=== PATIENT | male | born 1975 | race American Indian/Alaskan Native ===

== ENCOUNTER 2020-12-01 12:44 | Emergency (ER) | payer BC, OTHER ==
[2020-12-01 13:04] VITALS: BP 190/103
[2020-12-01] MEDS ORDERED: cloNIDine 0.2 MG TAB PO ONE (13:08)
--- NOTE | 2020-12-01 13:09 | Emergency Department Report ---
HPI - General Chief Complaint: Upper Respiratory Infection Time Seen by Provider: 12/01/20 12:48 - HPI HPI: MSE 1 Patient is a 45-year-old male present with a chief complaint of cough. The patient states for the past 4 to 5 days has had a cough productive of brown sputum. Patient states that night he notices blood in his sputum. Patient denies chest pain or shortness of breath. Patient denies history of fever. The patient states he has not received any vaccinations for Covid. Patient denies any known sick contacts ED Past Medical Hx - Past Medical History Hx Hypertension: Yes Hx Diabetes: Yes Additional medical history: Urethral stricture - Surgical History Additional Surgical History: Penile surgery - Family History Family history: no significant - Social History Smoking Status: Never Smoker Substance Use Type: None (Denies illicit drug use), Alcohol (Occasional) - Medications Home Medications: Home Medications Medication Instructions Recorded Confirmed Last Taken Type Furosemide [Lasix TAB] 40 mg PO QDAY 10/09/14 08/31/15 09/25/14 History Losartan [Cozaar] 100 mg PO QDAY 10/09/14 08/31/15 09/25/14 History amLODIPine 5 mg PO DAILY 10/09/14 08/31/15 09/25/14 History metFORMIN XR [Glucophage XR] 500 mg PO TID 10/09/14 08/31/15 09/25/14 History Benzonatate [Tessalon Perles] 100 mg PO Q8HR #30 capsule 12/01/20 Unknown Rx levoFLOXacin [Levaquin] 750 mg PO QDAY #10 tablet 12/01/20 Unknown Rx ED Review of Systems ROS: Stated complaint: BAD COUGH/BLOOD IN SALIVA Other details as noted in HPI Constitutional: denies: fever Eyes: denies: eye pain ENT: denies: throat pain Respiratory: cough. denies: shortness of breath Cardiovascular: denies: chest pain Endocrine: no symptoms reported Gastrointestinal: denies: abdominal pain Genitourinary: denies: dysuria Musculoskeletal: denies: back pain Neurological: denies: headache Physical Exam - Physical Exam Vital Signs: Vital Signs 12/01/20 12:50 Temperature 98.3 F Pulse Rate 82 Respiratory 20 Rate Blood Pressure 190/103 O2 Sat by Pulse 95 Oximetry Physical Exam: GENERAL: The patient is well-developed well-nourished obese male lying on stretcher not appearing to be in acute distress. [] HEENT: Normocephalic. Atraumatic. Extraocular motions are intact. Patient has moist mucous membranes. NECK: Supple. Trachea midline CHEST/LUNGS: Clear to auscultation. There is no respiratory distress noted. HEART/CARDIOVASCULAR: Regular. There is no tachycardia. There is no gallop rub or murmur. ABDOMEN: Abdomen is soft, nontender. Patient has normal bowel sounds. There is no abdominal distention. SKIN: There are chronic appearing skin changes consisting of indurated hyperpigmented skin bilateral pretibial regions. There is no edema. There is no diaphoresis. NEURO: The patient is awake, alert, and oriented. The patient is cooperative. The patient has no focal neurologic deficits. The patient has normal speech. GCS 15 MUSCULOSKELETAL: There is no evidence of acute injury. ED Course Vital Signs 12/01/20 12:50 Temperature 98.3 F Pulse Rate 82 Respiratory 20 Rate Blood Pressure 190/103 O2 Sat by Pulse 95 Oximetry ED Medical Decision Making - Lab Data Result diagrams: 12/01/20 13:23 12/01/20 13:23 Laboratory Tests 12/01/20 12/01/20 12/01/20 13:23 13:23 13:23 WBC 3.7 L RBC 5.98 H Hgb 16.5 H Hct 52.5 H MCV 88 MCH 28 MCHC 32 RDW 13.4 Plt Count 191 Lymph % (Auto) 41.3 H Newberry % (Auto) 10.5 H Eos % (Auto) 2.4 Baso % (Auto) 1.1 Lymph # (Auto) 1.5 Newberry # (Auto) 0.4 Eos # (Auto) 0.1 Baso # (Auto) 0.0 Seg Neutrophils % 44.7 Seg Neutrophils # 1.7 L PT 13.0 INR 0.88 APTT 28.2 D-Dimer 170.58 VBG pH Sodium 136 L Potassium 4.5 Chloride 98.4 Carbon Dioxide 26 Anion Gap 16 BUN 7 L Creatinine 0.5 L Estimated GFR > 60 BUN/Creatinine Ratio 14 Glucose 312 H Calcium 8.8 NT-Pro-B Natriuret Pep 30.20 12/01/20 13:23 WBC RBC Hgb Hct MCV MCH MCHC RDW Plt Count Lymph % (Auto) Newberry % (Auto) Eos % (Auto) Baso % (Auto) Lymph # (Auto) Newberry # (Auto) Eos # (Auto) Baso # (Auto) Seg Neutrophils % Seg Neutrophils # PT INR APTT D-Dimer VBG pH 7.347 Sodium Potassium Chloride Carbon Dioxide Anion Gap BUN Creatinine Estimated GFR BUN/Creatinine Ratio Glucose Calcium NT-Pro-B Natriuret Pep - Radiology Data Radiology results: report reviewed (Chest x-ray), image reviewed (Chest x-ray) interpreted by me: Chest x-ray-left lower lobe haziness. No pneumothorax. [facility] [address] [place] [address] XRay Report Signed Patient: SHOBHA KESSLER MR#: [id number] : 1975 Acct:[id number] Age/Sex: 45 / M ADM Date: 12/01/20 Loc: ED Attending Dr: Ordering Physician: BHAKTI LYNCH MD Date of Service: 12/01/20 Procedure(s): XR chest routine 2V Accession Number(s): [id number] cc: BHAKTI LYNCH MD Fluoro Time In Minutes: XR chest routine 2V INDICATION / CLINICAL INFORMATION: Cough, hemoptysis. COMPARISON: None available. FINDINGS: SUPPORT DEVICES: None. HEART /PULMONARY VASCULATURE: Mild cardiac enlargement. No overt failure. LUNGS / PLEURA: Bibasilar airspace opacities. No sizable pleural effusion. No pneumothorax. ADDITIONAL FINDINGS: No significant additional findings. IMPRESSION: Bibasilar airspace opacities, concerning for pneumonia. Signer Name: Portia Maciel MD Signed: 12/01/2020 1:44 PM Workstation Name: [id number] Transcribed By: JS Dictated By: PORTIA MACIEL MD Electronically Authenticated By: PORTIA MACIEL MD Signed Date/Time: 12/01/20 134 DD/ 1343 TD/TT: Print Cancel - Medical Decision Making Patient's 2-minute walking SPO2 95-96% on room air. - Differential Diagnosis Bronchitis, pneumonia, COVID-19 Critical care attestation.: If time is entered above; I have spent that time in minutes in the direct care of this critically ill patient, excluding procedure time. ED Disposition Clinical Impression: Pneumonia, Suspected 2019 novel coronavirus infection Disposition: HOME / SELF CARE / HOMELESS Is pt being admited?: No Does the pt Need Aspirin: No Condition: Stable Instructions: Bacterial Pneumonia (ED), Community-Acquired Pneumonia, Adult, [id number] Additional Instructions: Return to the emergency department should you develop worsening symptoms, inability to tolerate food or liquids, high fever or any other concerns Prescriptions: levoFLOXacin [Levaquin] 750 mg PO QDAY #10 tablet Benzonatate [Tessalon Perles] 100 mg PO Q8HR #30 capsule Referrals: PORTER MOTLEY MD [Staff Physician] - 3-5 Days (Dr. Motley is a primary physician. Please follow-up with him or your own primary physician if you have one.) Time of Disposition: 14:42
[2020-12-01 13:42] LABS: Basophils % (Auto) 1.1 % (0.0-1.8); Eosinophils # (Auto) 0.1 K/mm3 (0.0-0.4); Eosinophils % (Auto) 2.4 % (0.0-4.3); Hematocrit 52.5 % (35.5-45.6); Hemoglobin 16.5 gm/dl (11.8-15.2); Lymphocytes # (Auto) 1.5 K/mm3 (1.2-5.4); Lymphocytes % (Auto) 41.3 % (13.4-35.0); Mean Corpuscular HGB Conc 32 % (32-34); Mean Corpuscular Volume 88 fl (84-94); Monocytes # (Auto) 0.4 K/mm3 (0.0-0.8); Monocytes % (Auto) 10.5 % (0.0-7.3); Platelet Count 191 K/mm3 (140-440); Red Blood Count 5.98 M/mm3 (3.65-5.03); Red Cell Distribution Width 13.4 % (13.2-15.2)
--- NOTE | 2020-12-01 13:48 | XRay Report ---
XR chest routine 2V INDICATION / CLINICAL INFORMATION: Cough, hemoptysis. COMPARISON: None available. FINDINGS: SUPPORT DEVICES: None. HEART /PULMONARY VASCULATURE: Mild cardiac enlargement. No overt failure. LUNGS / PLEURA: Bibasilar airspace opacities. No sizable pleural effusion. No pneumothorax. ADDITIONAL FINDINGS: No significant additional findings. IMPRESSION: Bibasilar airspace opacities, concerning for pneumonia. Signer Name: Mohit Maciel MD Signed: 12/01/2020 1:44 PM Workstation Name: [id number]
[2020-12-01 13:53] LABS: INR 0.88 (0.87-1.13)
[2020-12-01 13:54] LABS: Partial Thromboplastin Time 28.2 Sec. (24.2-36.6)
[2020-12-01 14:06] LABS: Blood Urea Nitrogen 7 mg/dL (9-20); Calcium 8.8 mg/dL (8.4-10.2); Hemolysis Index 25
[2020-12-01 14:08] LABS: BUN/Creatinine Ratio 14
== END 2020-12-01 15:00 | disposition home or self-care (01) ==
LOC: ED 12:44
DX: J18.9 Pneumonia, unspecified organism (principal); Z20.822 Contact with and (suspected) exposure to COVID-19; I10 Essential (primary) hypertension; E11.9 Type 2 diabetes mellitus without complications; Z72.89 Other problems related to lifestyle; R79.1 Abnormal coagulation profile
CPT/HCPCS: 36415; 71046; 80048; 82805; 83880; 85025; 85379; 85610; 85730; 99283